=== PATIENT | male | born 1990 | race Caucasian/White ===

== ENCOUNTER 2016-03-22 15:19 | Emergency (ER) | payer OTHER ==
[~2016-03-22] VITALS: Ht 172.7 cm; Wt 85.9 kg
[2016-03-22 15:21] VITALS: TEMP 36.8; Ht 172.7 cm; Wt 85.9 kg
[2016-03-22] MEDS ORDERED: METR-163 PO (15:34)
[2016-03-22] MEDS ORDERED: SALI1SPR3 (15:34)
[2016-03-22] MEDS ORDERED: BUPR-83 PO (15:34)
[2016-03-22] MEDS ORDERED: CLIN1CAP51 PO (15:34)
[2016-03-22] MEDS ORDERED: TRAZ100T29 PO (15:34)
[2016-03-22] MEDS ORDERED: IBUP-1427 PO (15:34)
[2016-03-22] MEDS ORDERED: RMRS/45 PO (15:34)
[2016-03-22] MEDS ORDERED: CETI10TA84 PO (15:34)
[2016-03-22] MEDS ORDERED: FLUT0.15 (15:34)
[2016-03-22] MEDS ORDERED: OPTIRAY 320 IV PRN (15:45)
[2016-03-22 16:03] LABS: BASO % 0.2 %; BASO ABS # 0.02 K/uL (0-0.2); COMPLETE YES; EOS % 1.8 %; HEMATOCRIT 41.8 % (42-52); IG% 0.2 %; LYMPH % 27.3 %; MEAN CELL VOLUME 87.3 fL (80-100); MEAN CORPUSCULAR HEMOGLOBIN 30.5 pg (25-34); MEAN CORPUSCULAR HGB CONC 34.9 g/dl (32-36); MEAN PLATELET VOLUME 9.8 fL (7.4-10.4); MONO % 7.4 %; NEUT % 63.1 %; PLATELET COUNT 227 K/uL (130-400); RED BLOOD COUNT 4.79 M/uL (4.7-6.1); WHITE BLOOD COUNT 9.54 K/uL (4.8-10.8)
[2016-03-22 16:21] LABS: BUN/CREATININE RATIO 7.5 (10-20); CALCIUM 9.4 mg/dl (8.5-10.1); CREATININE 1.1 mg/dl (0.60-1.40); POTASSIUM 3.8 mmol/L (3.5-5.1)
--- NOTE | 2016-03-22 17:23 | DIAGNOSTIC IMAGING REPORT ---
CT SCAN OF THE NECK WITH IV CONTRAST; CT SCAN OF FACIAL BONES WITH IV CONTRAST CLINICAL HISTORY: Left-sided facial and neck swelling. Oral infection. COMPARISON STUDY: No priors. TECHNIQUE: Following the IV administration of 94 cc of Optiray 320, CT scan of the soft tissues of the neck was performed from the skull base to the upper chest. High-resolution contrast-enhanced examination of the facial bones is also performed. Images for both studies are reviewed in the axial, sagittal, and coronal planes. IV contrast was administered without complication. CT DOSE: 667.83 mGy.cm FINDINGS: Pharynx: The nasopharynx, oropharynx, and laryngeal pharynx are normal in appearance. The pharyngeal airway is widely patent. There is no evidence of mass lesion. The vocal cords are symmetric. The parapharyngeal fat is well maintained. The prevertebral/retropharyngeal soft tissues are within normal limits. Lymphadenopathy: There are mildly enlarged left cervical lymph nodes, likely on a reactive basis. Thyroid: Normal in size and attenuation. Salivary glands: The parotid and submandibular glands are within normal limits. Brain parenchyma: The visualized brain parenchyma at the skull base is normal in appearance. Vascular structures: The carotid arteries and jugular veins are widely patent. Calvarium and cervical spine: Imaged portions of the calvarium at the skull base are within normal limits. The cervical spine appears intact. Facial bones: There is no evidence of facial bone fracture. The bony orbits are intact and the orbital contents are within normal limits. The zygomatic arches, nasal bones, and pterygoid plates are preserved. The maxilla and mandible are intact. There are no layering blood products within the paranasal sinuses. Dentition: There is a large periapical lucency identified around the lateral left maxillary incisor and the left maxillary canine. There is cortical breakthrough with significant overlying edema of the superficial and deep soft tissues. This is greatest involving the left premalar and premandibular soft tissues, and is consistent with cellulitis. A tiny developing subperiosteal abscess is suspected superficial to the maxilla measuring up to 9 mm as seen on axial image #[address] of the neck. Additional maxillary history apical lucencies are seen involving premolars and molars again with associated cortical breakthrough is seen on image #147. A periapical lucency is also identified involving a right mandibular premolar. No definite cortical breakthrough is seen. Several dental caries are identified. Sinuses and mastoids: There is evidence of previous paranasal sinus surgery. There is mild mucosal thickening within the maxillary antra. The remaining for nasal sinuses are clear. The mastoid air cells are well pneumatized. Lung apices: Visualized apical lung parenchyma is clear. IMPRESSION: 1. There is a large periapical lucency identified involving the left lateral maxillary incisor and the left maxillary canine. There is associated cortical breakthrough with extensive overlying left facial cellulitis. A small developing abscess is suspected superficial to the left maxilla measuring up to 9 mm. Follow-up with dentistry is recommended. 2. Additional maxillary and mandibular periapical lucencies as above as well as dental caries. This should also be assessed by dentistry. 3. No facial bone fracture is identified. 4. Mildly enlarged left cervical lymph nodes are likely on a reactive basis. 5. Additional findings as above. Electronically signed by: Derian Rodriges M.D. 03/22/2016 5:21 PM Dictated Date/Time: 03/22/2016 5:03 PM
[2016-03-22] MEDS ORDERED: KETOROLAC TROMETHAMINE 30 MG/ML VIAL IV STA (17:26)
[2016-03-22] MEDS ORDERED: CLINDAMYCIN IV 900 MG in DEXTROSE 5% ADD-VANTAGE 100ML 100 ML IV ONE (17:30)
--- NOTE | 2016-03-22 17:40 | EMERGENCY ROOM VISIT NOTE ---
History First contact with patient: 15:29 Chief Complaint: DENTAL PAIN Stated Complaint: MOUTH INFECTION Nursing Triage Summary: left side on the upper front side with facial swelling pain. has been on antibiotics with no improvement History of Present Illness The patient is a 25 year old male who presents to the Emergency Room from the [facility] with complaints of left-sided facial swelling. The patient reports that he has had left upper dental pain for the past 2 days. The pain radiates into the left side of his face and down into the left side of his neck. He states that last night, the left side of the face began to swell. He assumed this was due to his sinuses, as he has been told he has sinus polyps which will need to be removed. He states he has had issues with these teeth in the past. He has seen the dentist at the [facility] facility and was told that they are not able to remove the teeth, but an oral surgeon would have to do it. He was placed on clindamycin and Flagyl. He states that the swelling has worsened since then and he was sent here for further evaluation. He denies any difficulty swallowing, difficulty breathing, fevers, neck pain, nausea or vomiting. Review of Systems A complete 10-point Review of Systems was discussed with the patient, with pertinent positives and negatives listed in the History of Present Illness. All remaining Review of Systems questions can be considered negative unless otherwise specified. Past Medical/Surgical History Medical Problems: (1) Chronic sinusitis Family History Cancer Heart disease Hypertension Lung disease Social History Smoking Status: Current Every Day Smoker Alcohol Use: none Drug Use: other Marital Status: single Housing Status: lives with family Occupation Status: unemployed Current/Historical Medications Scheduled Bupropion (Wellbutrin), 200 MG PO BID Clindamycin HCl (Clindamycin HCl), 300 CAP PO BID Fluticasone Propionate (Nasal) (Flonase Allergy Relief), 1 SPRAY NA BID Ibuprofen Tab (Motrin), 600 MG PO TID Metronidazole (Flagyl), 500 MG PO TID Mirtazapine (Mirtazapine), 45 MG PO HS Trazodone Hcl (Trazodone), 100 MG PO HS Scheduled PRN Cetirizine (Zyrtec), 10 MG PO QID PRN for PRN Saline (Saline Nasal [place]), 1 SPRAY NA BID PRN for PRN Allergies Coded Allergies: No Known Allergies (Unverified , 03/22/16) Physical Exam Vital Signs Date Time Temp Pulse Resp B/P Pulse Ox O2 Delivery O2 Flow Rate FiO2 03/22/16 19:18 82 18 129/74 96 03/22/16 15:21 36.8 87 20 133/78 95 Room Air Physical Exam VITALS: Vitals are noted on the nurse's note and reviewed by myself. Vital signs stable. GENERAL: This is a 25-year-old male, in no acute distress, nondiaphoretic, well- developed well-nourished. EARS: External auditory canals clear, tympanic membranes pearly wallace without erythema or effusion bilaterally. EYES: Pupils equal round and reactive to light and accommodation. Conjunctivae without injection, sclerae without icterus. Extraocular movements intact. FACE: There is mild edema of the left side of the face extending from the left maxillary region to the left infraorbital region. MOUTH: Mucous membranes moist. There are multiple carious teeth, especially the left upper molars. There is mild swelling of the gums of the left first molar. There is no evidence of a drainable abscess. The patient has overall poor dentition. There is no trismus. NECK: Supple without nuchal rigidity. No lymphadenopathy. . HEART: Regular rate and rhythm without murmurs gallops or rubs. LUNGS: Clear to auscultation bilaterally without wheezes, rales or rhonchi. ABDOMEN: Soft, nontender. NEURO: Patient was alert and oriented to person place and time. Medical Decision & Procedures ER Provider Diagnostic Interpretation: CT SCAN OF THE NECK WITH IV CONTRAST; CT SCAN OF FACIAL BONES WITH IV CONTRAST IMPRESSION: 1. There is a large periapical lucency identified involving the left lateral maxillary incisor and the left maxillary canine. There is associated cortical breakthrough with extensive overlying left facial cellulitis. A small developing abscess is suspected superficial to the left maxilla measuring up to 9 mm. Follow-up with dentistry is recommended. 2. Additional maxillary and mandibular periapical lucencies as above as well as dental caries. This should also be assessed by dentistry. 3. No facial bone fracture is identified. 4. Mildly enlarged left cervical lymph nodes are likely on a reactive basis. 5. Additional findings as above. Laboratory Results 03/22/16 15:40 Red Blood Count 4.79, Mean Corpuscular Volume 87.3, Mean Corpuscular Hemoglobin 30.5, Mean Corpuscular Hemoglobin Concent 34.9, Mean Platelet Volume 9.8, Neutrophils (%) (Auto) 63.1, Lymphocytes (%) (Auto) 27.3, Monocytes (%) (Auto) 7.4, Eosinophils (%) (Auto) 1.8, Basophils (%) (Auto) 0.2, Neutrophils # (Auto) 6.02, Lymphocytes # (Auto) 2.60, Monocytes # (Auto) 0.71, Eosinophils # (Auto) 0.17, Basophils # (Auto) 0.02 03/22/16 15:40 Test 03/22/16 15:40 White Blood Count 9.54 K/uL (4.8-10.8) Red Blood Count 4.79 M/uL (4.7-6.1) Hemoglobin 14.6 g/dL (14.0-18.0) Hematocrit 41.8 % (42-52) Mean Corpuscular Volume 87.3 fL (80-100) Mean Corpuscular Hemoglobin 30.5 pg (25-34) Mean Corpuscular Hemoglobin Concent 34.9 g/dl (32-36) Platelet Count 227 K/uL (130-400) Mean Platelet Volume 9.8 fL (7.4-10.4) Neutrophils (%) (Auto) 63.1 % Lymphocytes (%) (Auto) 27.3 % Monocytes (%) (Auto) 7.4 % Eosinophils (%) (Auto) 1.8 % Basophils (%) (Auto) 0.2 % Neutrophils # (Auto) 6.02 K/uL (1.4-6.5) Lymphocytes # (Auto) 2.60 K/uL (1.2-3.4) Monocytes # (Auto) 0.71 K/uL (0.11-0.59) Eosinophils # (Auto) 0.17 K/uL (0-0.5) Basophils # (Auto) 0.02 K/uL (0-0.2) RDW Standard Deviation 39.7 fL (36.4-46.3) RDW Coefficient of Variation 12.3 % (11.5-14.5) Immature Granulocyte % (Auto) 0.2 % Immature Granulocyte # (Auto) 0.02 K/uL (0.00-0.02) Anion Gap 8.0 mmol/L (3-11) Est Creatinine Clear Calc Drug Dose 109.5 ml/min Estimated GFR () 107.6 Estimated GFR (Non- 92.8 BUN/Creatinine Ratio 7.5 (10-20) Calcium Level 9.4 mg/dl (8.5-10.1) Medications Administered Medications (Trade) Dose Ordered Sig/Nahomy Route Start Time Stop Time Status Last Admin Dose Admin Clindamycin Phosphate/Dextrose (Cleocin Iv/ Dextrose Add-[place] 100ML) 106 ml @ 100 mls/hr ONE ONCE IV 03/22/16 17:30 03/22/16 18:33 DC 03/22/16 17:30 100 MLS/HR Ketorolac Tromethamine (Toradol Inj) 30 mg NOW STAT IV 03/22/16 17:26 03/22/16 17:28 DC 03/22/16 18:01 30 MG Medical Decision Differential diagnosis includes dental abscess, facial cellulitis, Hamilton's angina, among others. The patient was evaluated as above. Labs were drawn and IV access was obtained. Imaging studies were performed and read by radiology as above. The patient was medicated with 900 mg clindamycin IV and 30 mg Toradol IV. The patient was reassessed multiple times during their stay in the emergency department and remained in stable condition. The patient is a 25-year-old and who presents today complaining of left-sided dental pain and facial swelling. The patient does have moderate left-sided facial edema on exam. He is afebrile and nontoxic in appearance. Labs revealed no concerning leukocytosis. CT of the facial bones did show a tiny periapical abscess with surrounding facial cellulitis. The patient is currently being treated on clindamycin twice a day and Flagyl. I am unsure why the dentist prescribed Flagyl and I do feel the patient can stop this medication. He was given a dose of clindamycin IV and instructed to increase the dose to 300 mg 4 times daily. He will need to follow-up with an oral surgeon. He should return for worsening symptoms. Based on the patient's presentation, lab results, and imaging studies, I feel the patient is stable for outpatient treatment. Discharge instructions were reviewed with the patient. The patient verbalized understanding of my assessment and treatment plan and was discharged home in good condition. Impression Primary Impression: Periapical abscess Additional Impression: Facial cellulitis Departure Information Dispostion Home / Self-Care Condition GOOD [facility] (PCP) Patient Instructions My [facility] Additional Instructions You have been treated in the Emergency Department for Dental abscess. You should take clindamycin, 300 mg 4 times daily for at least 10 days. You can stop taking the Flagyl. For pain control, you can use the following [id number] medicines (if >12 yo): - Regular strength (325mg/tab) Tylenol (acetaminophen) 2 tabs every 4-6 hours as needed. Do not exceed 12 tablets in a 24 hour period. Avoid taking more than 4 grams (4000 mg) of Tylenol per day. This includes any other sources of acetaminophen you may take on a regular basis. - Regular strength (200 mg/tab) Advil (ibuprofen) 1-2 tabs every 4-6 hours as needed. Do not exceed a dose of 3200 mg per day. Recommend follow-up with oral surgery within 1-2 weeks. Return to the emergency department if you develop the following symptoms despite treatment course outlined above: fever, intractable pain, increased redness, swelling, or purulent discharge. Problem Qualifiers
[2016-03-22 19:18] VITALS: BP 129/74; PULSE 82; O2SAT 96
== END 2016-03-22 19:19 | disposition home or self-care (01) ==
LOC: C.EDB 15:21 → C.EDD 19:19
DX: K04.7 Periapical abscess without sinus (principal); L03.211 Cellulitis of face; Z86.19 Personal history of other infectious and parasitic diseases; F17.200 Nicotine dependence, unspecified, uncomplicated; Z79.899 Other long term (current) drug therapy; Z80.9 Family history of malignant neoplasm, unspecified; Z82.49 Family history of ischemic heart disease and other diseases of the circulatory system